=== PATIENT | female | born 1960 | race Two or more races ===

== ENCOUNTER 2020-04-28 13:03 | Emergency (ER) | payer MEDICAID ==
[~2020-04-28] VITALS: Ht 170.2 cm; Wt 58.1 kg
--- NOTE | 2020-04-28 13:20 | NUR ---
ED Nurse Note: pt presents to ED s/p head injury. pt reports that her cabinet door in her kitchen fell onto her at 1130 today. pt sustained multiple bruises to RUE and a small lac to forehead because she caught the door as it was falling and it also hit her head. pt denies LOC or taking any blood thinners at this time. denies loss of balance/changes in vision.
[2020-04-28 13:21] VITALS: BP 117/79
--- NOTE | 2020-04-28 13:29 | NUR ---
ED Nurse Note: pt is refusing CT head, states she does not want to be exposed to any more radiation. risks of refusing CT scan were explained to pt by EVERARDO Macias. pt verablized understanding of risk teaching and is still refusing scan at this time.
--- NOTE | 2020-04-28 13:39 | Emergency Room Report ---
History of Present Illness General Chief Complaint: Head Injury Source: Patient Present Illness HPI 60-year-old female with no known past medical history here status post head injury. Patient reports that this morning the cabinet door fall on her forehead about an hour prior to arrival. Denies any loss of consciousness however complains of dizziness at this time. Complains of minor headache. Denies any blurry vision, nausea or vomiting. Obvious contusion noted forehead. Patient speaking full sentences, denies any fatigue, denies any medication. Patient refuses a head CT scan radiated. Patient also wants to rule out a concussion and head bleed in order to complain to her landlord about old structure of cabinets inside her kitchen. Patient understands that refusing head CT limits heart examination and clearance of head bleed. Patient has full judgment of making this decision. Patient asked for some time off from work. Denies all other injuries. Has a normal steady gait. Denies . Denies alcohol intake and tobacco smoke. Denies taking blood thinners. Allergies: Coded Allergies: PENICILLINS (Verified Allergy, Unknown, 04/28/20) COVID-19 Screening Contact w/high risk pt: No Experienced COVID-19 symptoms?: No COVID-19 Testing performed CLINICAL LAB SPECIALIST: Yes COVID-19 Screening: Negative COVID-19 COVID-19 Testing Source: 04/26/20 Patient History Past Medical History: see triage record Past Surgical History: none Pertinent Family History: none Now: No Immunizations: UTD Reviewed Nursing Documentation: PMH: Agreed; PSxH: Agreed Nursing Documentation-PM Past Medical History: No History, Except For Review of Systems All Other Systems: negative except mentioned in HPI Physical Exam Vital Signs Date Time Temp Pulse Resp B/P (MAP) Pulse Ox O2 Delivery O2 Flow Rate FiO2 04/28/20 13:09 98.4 59 16 117/79 (92) 96 Room Air Sp02 EP Interpretation: reviewed, normal General Appearance: no apparent distress, alert, GCS 15, non-toxic Head: normocephalic, other - Contusion forehead Eyes: bilateral eye normal inspection, bilateral eye PERRL ENT: hearing grossly normal, normal pharynx, no angioedema, normal voice Neck: full range of motion, supple, thyroid normal, no bony tend, supple/symm/no masses, other - Nexus criteria negative Respiratory: chest non-tender, lungs clear, normal breath sounds, no retraction, speaking full sentences Cardiovascular #1: regular rate, rhythm, no edema Cardiovascular #2: 2+ carotid (R), 2+ carotid (L), 2+ radial (R), 2+ radial (L) Gastrointestinal: normal bowel sounds, non tender, soft, non-distended, no guarding, no rebound Rectal: deferred Genitourinary: no CVA tenderness Musculoskeletal: back normal, non-tender Neurologic: alert, motor strength/tone normal, oriented, distal neuro normal, oriented x3, sensory intact, cerebellar normal, responsive, speech normal Psychiatric: judgement/insight normal, memory normal, mood/affect normal, no suicidal/homicidal ideation Skin: no rash, other - Small abrasion noted Lymphatic: no adenopathy Medical Decision Making PA Attestation All diagnosis and treatment plans were discussed and reviewed by my supervising physician Dr. Sosa Diagnostic Impression: Primary Impression: Acute head injury ER Course 60-year-old female with no known past medical history here status post head injury. Patient reports that this morning the cabinet door fall on her forehead about an hour prior to arrival. Denies any loss of consciousness however complains of dizziness at this time. Complains of minor headache. Denies any blurry vision, nausea or vomiting. Obvious contusion noted forehead. Patient speaking full sentences, denies any fatigue, denies any medication. Patient refuses a head CT scan radiated. Patient also wants to rule out a concussion and head bleed in order to complain to her landlord about old structure of cabinets inside her kitchen. Patient understands that refusing head CT limits heart examination and clearance of head bleed. Patient has full judgment of making this decision. Patient asked for some time off from work. Denies all other injuries. Has a normal steady gait. Denies . Denies alcohol intake and tobacco smoke. Denies taking blood thinners. Ddx considered but are not limited to: cerebral hematoma, concussion, skull fracture, head contusion Vital signs: are WNL, pt. is afebrile H&PE are most consistent with: Head injury ORDERS: head CT no contrast however patient refused, Tylenol ED INTERVENTIONS: None required at this time. DISCHARGE: At this time pt. is stable for d/c to home. Will provide printed patient care instructions, and any necessary prescriptions. Care plan and follow up instructions have been discussed with the patient prior to discharge. Patient did not want any medication in ED, patient She refused CT scan as she is afraid of radiation, patient understands that not getting CT scan done today limits this ruling out head bleed advised patient to stay over at her friend's house or have someone watch her today, if any new symptoms return to emergency room. Patient has full judgment upon cessation. Advised patient to refrain from prolonged monitor, have mental rest in case of a concussion. Emergency Last Vital Signs Date Time Temp Pulse Resp B/P (MAP) Pulse Ox O2 Delivery O2 Flow Rate FiO2 04/28/20 13:21 98.4 87 16 117/79 96 Room Air Disposition: HOME, SELF-CARE Condition: Stable Scripts Acetaminophen* (TYLENOL EXTRA STRENGTH*) 500 Mg Tablet 500 MG ORAL Q8H PRN for Prn Headache/Temp > 101, #30 TAB 0 Refills Prov: Gilberto Howell 04/28/20 Referrals: NOT CHOSEN IPA/,REFERRING (PCP) Patient Instructions: Head Injury, Adult, [id number] Additional Instructions: Take medication as directed, avoid mental fatigue, avoid stress, avoid prolonged staring at the monitors, avoid alcohol for the first 24 hours. If worsening symptoms return to emergency Gilberto Howell Apr 28, 2020 13:39
[2020-04-28] MEDS ORDERED: TYLENOL EXTRA500 MG ORAL (13:40)
[2020-04-28 13:45] VITALS: BP 117/79
--- NOTE | 2020-04-28 13:45 | NUR ---
ER DISCHARGE NOTE: Patient is cleared to be discharged per ERMD, pt is aox4, on room air, with stable vital signs. pt was given dc and prescription instructions, pt was able to verbalize understanding, pt id band removed without complications. pt is able to ambulate with steady gait. pt took all belongings.
== END 2020-04-28 13:45 | disposition home or self-care (01) ==
LOC: EMR 13:25
DX: S09.90XA Unspecified injury of head, initial encounter (principal); S00.83XA Contusion of other part of head, initial encounter; W20.8XXA Other cause of strike by thrown, projected or falling object, initial encounter; Y92.9 Unspecified place or not applicable; R51.9 Headache, unspecified; Z88.0 Allergy status to penicillin
CPT/HCPCS: 99282